=== PATIENT | female | born 1960 | race Caucasian/White ===

== ENCOUNTER 2017-07-28 16:54 | Emergency (ER) | payer BC ==
[~2017-07-28] VITALS: Ht 162.6 cm; Wt 80.6 kg
[~2017-07-28 16:54] MED LIST: ADVIL200 MG PO; ALEVE220 M2 PO; K-DUR20 MEQ PO; ULTRAM50 MG PO; ZANTAC150 MG PO; ZOFRAN4 MG PO
[2017-07-28 17:00] VITALS: BP 186/92
== END 2017-07-28 19:20 | disposition home or self-care (01) ==
LOC: EME 16:54
DX: R42 Dizziness and giddiness (principal); Z53.21 Procedure and treatment not carried out due to patient leaving prior to being seen by health care provider
CPT/HCPCS: 82948